=== PATIENT | female | born 1950 | race Caucasian/White ===

== ENCOUNTER 2017-06-08 05:46 | Day surgery (SDC) | payer MEDICARE, BC ==
[~2017-06-08] VITALS: Ht 182.9 cm; Wt 93.0 kg
--- NOTE | ~2017-06-08 | OP ---
PATIENT NAME: NIRANJAN ACOSTA MEDICAL RECORD: [id number] :51 LOCATION:[facility] ADMISSION DATE: SURGEON: DEMETRIA CHAPPELL DPM DATE OF OPERATION: 06/08/2017 PREOPERATIVE DIAGNOSIS: Hammertoe deformity of the left second, third, and fourth digits. POSTOPERATIVE DIAGNOSIS: Hammertoe deformity of the left second, third, and fourth digits. PROCEDURES: 1. Proximal interphalangeal joint fusion, left second and third digits. 2. Flexor tenotomy, left fourth digit. ANESTHESIA: Local with IV sedation utilizing lidocaine and Marcaine plain, approximately 14 cc total, around the dorsum of the left foot in the second, third, and fourth digits. HEMOSTASIS: Left thigh tourniquet at 350 mmHg. PREOPERATIVE DETAILS: The patient was taken to the OR, placed on the operating table in supine position. This was followed by induction of general anesthesia and infiltration of local anesthetic. The left extremity was then prepped and draped in usual aseptic technique followed by exsanguination and inflation of tourniquet. PROCEDURE #1: PIPJ fusion of left second digit: A 15-blade was used to create 2 semi-elliptical incisions over the dorsal aspect of the PIPJ. The skin wedge was removed. The extensor longus tendon was then transected exposing the base of the middle phalanx and the head of the proximal phalanx. A sagittal saw was used to resect both. Drill hole was made with guidewire guidance followed by insertion of the bone graft in the proximal phalanx with the distal fragment being distracted and impacted on the stub of the bone graft that was actually in the proximal phalanx. Excellent alignment was noted. The extensor longus tendon was reapproximated with 4-0 Rapide, and the skin was closed with 4-0 Rapide in a subcuticular technique followed by Dermabond. PROCEDURE #2: PIPJ fusion of left third digit: Procedure was described as above without variation and/or complication. PROCEDURE #3: Flexor tenotomy of left fourth digit: A 15 blade was used to create a small stab incision over the plantar aspect of the base of the fourth digit. The incision was deepened down to the flexor tendon, which was transected with a 15 blade. Excellent reduction of the plantar contracture was noted with a rectus digit. The 4-0 Rapide was used to close the wound, followed by Dermabond. Adaptic, 4 x 4, and Conform were used to dress all wounds, followed by Coban. Tourniquet was deflated. POSTOPERATIVE DETAILS: The patient tolerated the procedure well and left the OR with vital signs stable and vascular status at preoperative levels. The patient was transported to recovery per anesthesia in stable condition. TRANSINT:[id number] Voice Confirmation ID: [id number] DOCUMENT ID: [id number] OPERATIVE REPORT [id number] NIRANJAN ACOSTA MCKAY DPM CC: [id number] DICTATION DATE: 06/08/1755 ROBOTICS APPLICATION ENGINEER: 06/08/17 1318 [facility] [address] [place] [address]
[~2017-06-08 05:46] MED LIST: CALTRATE 600 M600 M1 PO; CLIMARA 0.0.1 MG/PAT TRANSDERM; COREG25 MG PO; DEMADEX20 MG PO; DEPAKOTE250 MG PO; GLUCOSAMINE & C1 CAP PO; GLUCOTROL ER2.5 MG PO; LIPITOR40 MG PO; LOTREL 5/20 MG1 CAP
[2017-06-08 06:49] VITALS: BP 136/76; Ht 182.9 cm; Wt 93.0 kg
[2017-06-08 07:04] LABS: HEMATOCRIT 37.2 % (36.0-48.0); HEMOGLOBIN 12.8 g/dL (12-16); MCH 31.8 pg (26.0-34.0); MCHC 34.4 g/dL (31.0-37.0); MCV 92.5 fL (80.0-100.0); MEAN PLATELET VOLUME 11.8 fL (7.4-10.4); RBC 4.02 10x6/uL (4.00-5.40); RDW 13.1 % (11.5-14.5); WBC 4.7 10x3/uL (4.8-10.8)
[2017-06-08 07:14] LABS: ANION GAP 14.1 mmol/L (8-16); CARBON DIOXIDE 28.8 mmol/L (21.0-32.0); CREATININE - SERUM 1.5 mg/dL (0.6-1.3); POTASSIUM - SERUM 3.9 mmol/L (3.5-5.1)
--- NOTE | 2017-06-08 15:10 | NUR ---
1130--IV DC'D, PT UP TO DRESS. MAY RODRIGUEZ 1159--DISCHARGE INSTRUCTIONS GIVEN, PT VERBALIZES UNDERSTANDING. PT OFF UNIT VIA WC. MAY RODRIGUEZ
== END 2017-06-08 11:55 | disposition home or self-care (01) ==
LOC: D.OPS 05:46 → D.PAN 09:15 → D.OPS 09:15
PROVIDERS: Anesthesiology
DX: M20.42 Other hammer toe(s) (acquired), left foot (principal); I10 Essential (primary) hypertension; E11.9 Type 2 diabetes mellitus without complications; K21.9 Gastro-esophageal reflux disease without esophagitis; Z01.812 Encounter for preprocedural laboratory examination